=== PATIENT | female | born 1960 | race Caucasian/White ===

== ENCOUNTER 2017-10-11 01:49 | Emergency (ER) | payer OTHER, MEDICARE ==
[~2017-10-11] VITALS: Ht 167.6 cm; Wt 68.0 kg
[2017-10-11] MEDS ORDERED: LEVORPHANOL TART2 MG PO (02:00)
[2017-10-11] MEDS ORDERED: TOPAMAX50 MG PO (02:01)
[2017-10-11] MEDS ORDERED: PAMELOR25 MG PO (02:01)
[2017-10-11] MEDS ORDERED: TOPAMAX 100 MG100 MG PO (02:01)
[2017-10-11] MEDS ORDERED: MOVANTIK25 MG PO (02:03)
[2017-10-11] MEDS ORDERED: XANAX1 MG PO ×2 (02:04→02:44)
[2017-10-11] MEDS ORDERED: BRINTELLIX10 MG PO (02:04)
[2017-10-11] MEDS ORDERED: FERROUS FUMARA324 MG PO (02:04)
[2017-10-11] MEDS ORDERED: CALCITRATE200 MG PO (02:06)
[2017-10-11] MEDS ORDERED: FISH OIL 1,001000 M2 PO (02:06)
[2017-10-11] MEDS ORDERED: BIOTIN10000 MC1 PO (02:07)
[2017-10-11] MEDS ORDERED: SYNTHROID75 MCG PO (02:08)
[2017-10-11] MEDS ORDERED: MODAFINIL200 MG PO (02:37)
[2017-10-11] MEDS ORDERED: CLONIDINE HCL0.2 M2 PO (02:38)
[2017-10-11] MEDS ORDERED: REQUIP3 MG PO (02:38)
[2017-10-11] MEDS ORDERED: MELATONIN5 M1 PO (02:39)
[2017-10-11] MEDS ORDERED: NASCOBAL1 EACH NASAL (02:39)
[2017-10-11] MEDS ORDERED: RETIN-A20 G1 TOP (02:40)
[2017-10-11] MEDS ORDERED: PENNSAID112 GM TOP (02:41)
[2017-10-11] MEDS ORDERED: ALDACTONE50 MG PO (02:41)
[2017-10-11] MEDS ORDERED: ROBAXIN 750 MG750 M1 PO (02:42)
[2017-10-11] MEDS ORDERED: ONDANSETRON HCL4 M2 PO (02:43)
[2017-10-11] MEDS ORDERED: LIDOCAINE PAIN1 EACH TOP (02:43)
[2017-10-11] MEDS ORDERED: VENTOLIN HFA 1818 GM INH (02:43)
[2017-10-11] MEDS ORDERED: [UNRECOGNIZED DRUG - OTHER] INJECTION (02:45)
[2017-10-11] MEDS ORDERED: UNICOMPLEX M TA1 TA1 PO (02:48)
[2017-10-11] MEDS ORDERED: TUMS PO (02:49)
[2017-10-11 03:50] VITALS: BP 121/69
== END 2017-10-11 03:58 | disposition home or self-care (01) ==
LOC: ER 01:49
DX: R56.9 Unspecified convulsions (principal); K50.00 Crohn's disease of small intestine without complications; Z90.89 Acquired absence of other organs; Z90.49 Acquired absence of other specified parts of digestive tract; Z88.8 Allergy status to other drugs, medicaments and biological substances; Z91.040 Latex allergy status; Z88.6 Allergy status to analgesic agent

== ENCOUNTER 2021-04-29 14:38 | Emergency (ER) | payer OTHER, MEDICARE ==
[~2021-04-29] VITALS: Ht 170.2 cm; Wt 68.0 kg
--- NOTE | ~2021-04-29 | EMS ---
[address] [address] EMS Patient Care Report Name: ALEX MOLINA Room #: DEP SREEDHAR Leung#: [id number] Admission: 04/29/21 Attend Phys: Discharge: 04/29/21 Date of : 62 Report #: [id number] THIS REPORT FOR: //name// Report Transmitted: 04/29/2021 20:16 EMS Care Summary [place], [place]/[facility] Incident [id number] @ 04/29/2021 13:54 Incident Location [address] [place], [place] [id number] Patient ALEX MOLINA Female, 61 Years 1960 Patient Address [address] [place], [place] [id number] Patient History Other,Cardiac Condition - Other, Patient Allergies No known allergies, Patient Medications Lamotrigine, Ferrous Sulfate, Topiramate, Levothyroxine, Sulfatrim, Chief Complaint Overdose Disposition Transported No Lights/[place] Dispatch Reason Breathing Problem Transported To [facility] Narrative Pt family stated to EMS that Pt has a history of pain medication abuse and today they believe Pt has taking some Oxycodone that they did not know she had hidden and unsure how many pills she took. 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 [address] [address] EMS Patient Care Report Name: ALEX MOLINA Room #: DEP [facility]#: [id number] Admission: 04/29/21 Attend Phys: Discharge: 04/29/21 Date of : 62 Report #: [id number] Pt family stated the last time they were around Pt when she was normal was around noon when she went downstairs and they believe that is when she overdosed. Pt is a GCS 11. Pt found sitting downstairs in basement with her sister with her, Pt is lethargic and is a GCS 15 with Pt puple's x2 @ 3 mm. Pt received 2 mg Narcan I.V and Pt had no change in her LOC but Pt breathing improved and Pt pulse ox increased as well. Pt had no other complaints noted and received by RN in ER. Initial Vitals @14:25P: 88,R: 14,BP: 125/88,Pain: 0/10,GCS: 11,Glucose: 103,CO: 0,SpO2: 91,Revised Trauma: 11, @14:27P: 92,R: 18,BP: 121/78,Pain: 0/10,GCS: 11,SpO2: 100,Revised Trauma: 11, @14:32P: 94,R: 18,BP: 120/89,Pain: 0/10,GCS: 11,SpO2: 99,Revised Trauma: 11, Assessments @14:25MENTAL:Person Oriented,Confused,SKIN:HEENT:Eyes: Left: Dilated,Eyes: Right: Dilated,Eyes: Left Pupil: 3-mm,Eyes: Right Pupil: 3-mm,Head/Face: No Abnormalities,Neck/Airway: No Abnormalities,LUNG SOUNDS:General: No Abnormalities,ABDOMEN:General: No Abnormalities,PELVIS//GI:No Abnormalities,EXTREMITIES:Capillary Refill: Left Upper: < 2 Sec,Left Arm: No Abnormalities,Right Arm: No Abnormalities,Left Leg: No Abnormalities,Right Leg: No Abnormalities,PULSE:Radial: 2+ Normal,NEURO:No Abnormalities,@14:33MENTAL:Confused,Person Oriented,SKIN:HEENT:Eyes: Right: Constricted,Eyes: Left: Constricted,Eyes: Left Pupil: 3-mm,Eyes: Right Pupil: 3-mm,Head/Face: No Abnormalities,Neck/Airway: No Abnormalities,LUNG SOUNDS:General: No Abnormalities,ABDOMEN:General: No Abnormalities,PELVIS//GI:No Abnormalities,EXTREMITIES:Capillary Refill: Right Upper: < 2 Sec,Left Arm: No Abnormalities,Right Arm: No Abnormalities,Left Leg: No Abnormalities,Right Leg: No Abnormalities,PULSE:Radial: 2+ Normal,NEURO:No Abnormalities, Impression Overdose - Unspecified Procedures @14:25 ALS Assessment Response: Unchanged @PTA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: 15 Device: Non Re-breather Mask (NRB) Response: UnchangedSucceeded @14:28 3-Lead ECG Response: UnchangedSucceeded @14:32 IV Therapy - Saline Lock 0cc (20 ga) Site: Antecubital-Left Response: UnchangedSucceeded @14:34 Narcan - 2 Milligrams (mg) - Intravenous (IV) Response: Unchanged Timeline [address] [address] EMS Patient Care Report Name: ALEX MOLINA Room #: DEP Mad[facility]#: [id number] Admission: 04/29/21 Attend Phys: Discharge: 04/29/21 Date of : 62 Report #: [id number] 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,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: 15 Device: Non Re-breather Mask (NRB) Response: UnchangedSucceeded, 13:53,Call Received 13:53,Dispatch Notified 13:54,Dispatched 13:55,En Route 14:23,On Scene 14:25,At Patient 14:25,ALS Assessment,Response: Unchanged 14:25,BP: 125/88 M,PULSE: 88,RR: 14 R,SPO2: 91 Ox,ETCO2: ,B,PAIN: 0,GCS: 11, 14:26,Depart Scene 14:27,BP: 121/78 M,PULSE: 92,RR: 18 R,SPO2: 100 Ox,ETCO2: ,BG: ,PAIN: 0,GCS: 11, 14:28,3-Lead ECG,Response: UnchangedSucceeded, 14:32,IV Therapy - Saline Lock 0cc 20 ga Site: Antecubital-Left,Response: UnchangedSucceeded, 14:32,BP: 120/89 M,PULSE: 94,RR: 18 R,SPO2: 99 Ox,ETCO2: ,BG: ,PAIN: 0,GCS: 11, 14:34,Narcan - 2 Milligrams (mg) - Intravenous (IV),Response: Unchanged 14:34,At Destination 14:49,Call Closed Disclaimer v1.1 Copyright 2021 [employer] This EMS Care Summary contains data elements from the applicable legal record (which may be displayed differently). It is designed to provide pertinent information for the following purposes: continuity of care, clinical quality, and state data reporting. The complete legal record is available to ED staff and administrators of the receiving hospital in [employer]'s Patient Tracker. All data is provided "as is."
--- NOTE | ~2021-04-29 | EMS ---
[address] [address] EMS Patient Care Report Name: ALEX MOLINA Room #: DEP SREEDHAR Leung#: [id number] Admission: 04/29/21 Attend Phys: Discharge: 04/29/21 Date of : 62 Report #: [id number] THIS REPORT FOR: //name// Report Transmitted: 04/29/2021 21:17 EMS Care Summary [place], [place]/[facility] Incident [id number] @ 04/29/2021 13:54 Incident Location [address] [place], [place] [id number] Patient ALEX MOLINA Female, 61 Years 1960 Patient Address [address] [place], [place] [id number] Patient History Other,Cardiac Condition - Other, Patient Allergies No known allergies, Patient Medications Lamotrigine, Ferrous Sulfate, Topiramate, Levothyroxine, Sulfatrim, Chief Complaint Overdose Disposition Transported No Lights/[place] Dispatch Reason Breathing Problem Transported To [facility] Narrative Pt family stated to EMS that Pt has a history of pain medication abuse and today they believe Pt has taking some Oxycodone that they did not know she had hidden and unsure how many pills she took. 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 [address] [address] EMS Patient Care Report Name: ALEX MOLINA Room #: DEP [facility]#: [id number] Admission: 04/29/21 Attend Phys: Discharge: 04/29/21 Date of : 62 Report #: [id number] Pt family stated the last time they were around Pt when she was normal was around noon when she went downstairs and they believe that is when she overdosed. Pt is a GCS 11. Pt found sitting downstairs in basement with her sister with her, Pt is lethargic and is a GCS 15 with Pt puple's x2 @ 3 mm. Pt received 2 mg Narcan I.V and Pt had no change in her LOC but Pt breathing improved and Pt pulse ox increased as well. Pt had no other complaints noted and received by RN in ER. Initial Vitals @14:25P: 88,R: 14,BP: 125/88,Pain: 0/10,GCS: 11,Glucose: 103,CO: 0,SpO2: 91,Revised Trauma: 11, @14:27P: 92,R: 18,BP: 121/78,Pain: 0/10,GCS: 11,SpO2: 100,Revised Trauma: 11, @14:32P: 94,R: 18,BP: 120/89,Pain: 0/10,GCS: 11,SpO2: 99,Revised Trauma: 11, Assessments @14:25MENTAL:Person Oriented,Confused,SKIN:HEENT:Eyes: Left: Dilated,Eyes: Right: Dilated,Eyes: Left Pupil: 3-mm,Eyes: Right Pupil: 3-mm,Head/Face: No Abnormalities,Neck/Airway: No Abnormalities,LUNG SOUNDS:General: No Abnormalities,ABDOMEN:General: No Abnormalities,PELVIS//GI:No Abnormalities,EXTREMITIES:Capillary Refill: Left Upper: < 2 Sec,Left Arm: No Abnormalities,Right Arm: No Abnormalities,Left Leg: No Abnormalities,Right Leg: No Abnormalities,PULSE:Radial: 2+ Normal,NEURO:No Abnormalities,@14:33MENTAL:Confused,Person Oriented,SKIN:HEENT:Eyes: Right: Constricted,Eyes: Left: Constricted,Eyes: Left Pupil: 3-mm,Eyes: Right Pupil: 3-mm,Head/Face: No Abnormalities,Neck/Airway: No Abnormalities,LUNG SOUNDS:General: No Abnormalities,ABDOMEN:General: No Abnormalities,PELVIS//GI:No Abnormalities,EXTREMITIES:Capillary Refill: Right Upper: < 2 Sec,Left Arm: No Abnormalities,Right Arm: No Abnormalities,Left Leg: No Abnormalities,Right Leg: No Abnormalities,PULSE:Radial: 2+ Normal,NEURO:No Abnormalities, Impression Overdose - Unspecified Procedures @14:25 ALS Assessment Response: Unchanged @PTA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: 15 Device: Non Re-breather Mask (NRB) Response: UnchangedSucceeded @14:28 3-Lead ECG Response: UnchangedSucceeded @14:32 IV Therapy - Saline Lock 0cc (20 ga) Site: Antecubital-Left Response: UnchangedSucceeded @14:34 Narcan - 2 Milligrams (mg) - Intravenous (IV) Response: Unchanged Timeline [facility] [address] [place] [address] EMS Patient Care Report Name: ALEX MOLINA Room #: DEP SREEDHAR Leung#: [id number] Admission: 04/29/21 Attend Phys: Discharge: 04/29/21 Date of : 62 Report #: [id number] 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,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: 15 Device: Non Re-breather Mask (NRB) Response: UnchangedSucceeded, 13:53,Call Received 13:53,Dispatch Notified 13:54,Dispatched 13:55,En Route 14:23,On Scene 14:25,At Patient 14:25,ALS Assessment,Response: Unchanged 14:25,BP: 125/88 M,PULSE: 88,RR: 14 R,SPO2: 91 Ox,ETCO2: ,B,PAIN: 0,GCS: 11, 14:26,Depart Scene 14:27,BP: 121/78 M,PULSE: 92,RR: 18 R,SPO2: 100 Ox,ETCO2: ,BG: ,PAIN: 0,GCS: 11, 14:28,3-Lead ECG,Response: UnchangedSucceeded, 14:32,IV Therapy - Saline Lock 0cc 20 ga Site: Antecubital-Left,Response: UnchangedSucceeded, 14:32,BP: 120/89 M,PULSE: 94,RR: 18 R,SPO2: 99 Ox,ETCO2: ,BG: ,PAIN: 0,GCS: 11, 14:34,Narcan - 2 Milligrams (mg) - Intravenous (IV),Response: Unchanged 14:34,At Destination 14:49,Call Closed Disclaimer v1.1 Copyright 2021 [employer] This EMS Care Summary contains data elements from the applicable legal record (which may be displayed differently). It is designed to provide pertinent information for the following purposes: continuity of care, clinical quality, and state data reporting. The complete legal record is available to ED staff and administrators of the receiving hospital in [employer]'s Patient Tracker. All data is provided "as is."
[~2021-04-29 14:38] MED LIST: ALDACTONE50 MG PO; BIOTIN10000 MC1 PO; BRINTELLIX10 MG PO; CALCITRATE200 MG PO; CLONIDINE HCL0.2 M2 PO; FERROUS FUMARA324 MG PO; FISH OIL 1,001000 M2 PO; LEVORPHANOL TART2 MG PO; LIDOCAINE PAIN1 EACH TOP; MELATONIN5 M1 PO; MODAFINIL200 MG PO; MOVANTIK25 MG PO; NASCOBAL1 EACH NASAL; ONDANSETRON HCL4 M2 PO; PAMELOR25 MG PO; PENNSAID112 GM TOP; REQUIP3 MG PO; RETIN-A20 G1 TOP; ROBAXIN 750 MG750 M1 PO; SYNTHROID75 MCG PO; TOPAMAX 100 MG100 MG PO; TOPAMAX50 MG PO; TUMS PO; UNICOMPLEX M TA1 TA1 PO; VENTOLIN HFA 1818 GM INH; XANAX1 MG PO; [UNRECOGNIZED DRUG - OTHER] INJECTION
[2021-04-29 14:58] LABS: URINE BILIRUBIN NEGATIVE (Negative); URINE BLOOD NEGATIVE (Negative); URINE CLARITY CLEAR; URINE COLOR YELLOW; URINE GLUCOSE-RANDOM* NEGATIVE (Negative); URINE KETONES NEGATIVE (Negative); URINE LEUKOCYTES-REFLEX NEGATIVE (Negative); URINE NITRITE-REFLEX NEGATIVE (Negative); URINE PROTEIN (DIPSTICK) NEGATIVE (Negative); URINE SPECIFIC GRAVITY >= 1.030 (1.005-1.035); URINE UROBILINOGEN 0.2 E.U./dl (0.2-1.0)
[2021-04-29 15:01] LABS: ABSOLUTE NEUTROPHILS 2.1 thou/uL (1.4-8.2); BASOPHILS 0.9 % (0.0-2.0); EOSINOPHILS 1.7 % (0.0-3.0); HEMATOCRIT 39.9 % (37.0-47.0); HEMOGLOBIN 12.4 gm/dL (12.0-15.0); LYMPHOCYTES 31.4 % (24.0-44.0); MCHC 31.1 g/dL (28.0-37.0); MCV 99.7 fL (80.0-100.0); MONOCYTES 13.5 % (1.0-8.0); PLATELET COUNT 253 thou/uL (150-400); POLYS 52.5 % (36.0-66.0); RDW 16.3 % (10.5-14.5); WBC 3.9 thou/uL (4.0-11.0)
[2021-04-29 15:06] LABS: AMP/METHAMP Negative (Negative); BARBITURATES POSITIVE (Negative); BENZODIAZEPINES Negative (Negative); COCAINE Negative (Negative); METHADONE Negative (Negative); OPIATES Negative (Negative); PCP Negative (Negative)
[2021-04-29 15:08] LABS: ANION GAP 14 mmol/L (7-16); BUN 15 mg/dL (7-18); CHLORIDE 114 mmol/L (98-107); CO2 18 mmol/L (21-32); CREATININE 0.8 mg/dL (0.6-1.0); GLUCOSE 89 mg/dL (74-106); POTASSIUM 3.7 mmol/L (3.5-5.1); SODIUM 146 mmol/L (136-145)
[2021-04-29 15:18] LABS: ALBUMIN 3.1 g/dL (3.4-5.0); SALICYLATE < 2.8 mg/dL (2.8-20.0); SGOT 35 U/L (15-37); SGPT 37 U/L (14-59); TOTAL BILIRUBIN 0.2 mg/dL (0.2-1.0)
[2021-04-29] MEDS ORDERED: KEPPRA 500 MG500 M1 PO (16:25)
[2021-04-29] MEDS ORDERED: ROXICODONE15 MG PO (16:26)
[2021-04-29] MEDS ORDERED: CLONAZEPAM 1 MG1 M1 PO (16:27)
[2021-04-29] MEDS ORDERED: TOPIRAMATE200 MG PO (16:28)
[2021-04-29] MEDS ORDERED: LAMOTRIGINE200 MG PO (16:28)
[2021-04-29] MEDS ORDERED: ONDANSETRON HCL8 MG PO (16:29)
[2021-04-29 20:41] VITALS: BP 114/74
--- NOTE | 2021-04-30 07:32 | EKG ---
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
== END 2021-04-29 20:44 | disposition home or self-care (01) ==
LOC: ER 14:38
PROVIDERS: Physician Assistant
DX: R41.82 Altered mental status, unspecified (principal); Z20.822 Contact with and (suspected) exposure to COVID-19; Z90.89 Acquired absence of other organs; Z90.49 Acquired absence of other specified parts of digestive tract; Z98.890 Other specified postprocedural states; Z88.6 Allergy status to analgesic agent; Z88.8 Allergy status to other drugs, medicaments and biological substances; Z91.040 Latex allergy status